=== PATIENT | male | born 1965 | race Caucasian/White ===

== ENCOUNTER 2019-08-13 01:06 | Emergency (ER) | payer SELFPAY ==
[~2019-08-13] VITALS: Ht 170.2 cm; Wt 69.4 kg
[2019-08-13] MEDS ORDERED: IV RINGERS SOLUTION,LACTATED 1,000 ML IV SCH (01:28)
[2019-08-13] MEDS ORDERED: LIDOCAINE 2% 20 ML VIAL. IJ ONE (01:30)
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
[2019-08-13] MEDS ORDERED: DIPHTH,PERTUSS(ACELL),TET TOX 0.5 ML DISP.SYRIN. VAX IM ONE (02:30)
[2019-08-13 02:35] LABS: BASO # 0.1 x10^3/uL (0.0-0.2); BASO % 1 % (0-3); EOS # 0.1 x10^3/uL (0.0-0.7); EOS % 1 % (0-3); HEMOGLOBIN 14.4 g/dL (13.0-17.5); LYMPH # 2.9 x10^3/uL (1.0-4.8); LYMPH % 22 % (24-48); MEAN CORPUSCULAR HEMOGLOBIN 31 pg (25-35); MEAN CORPUSCULAR HGB CONC 33 g/dL (31-37); MEAN CORPUSCULAR VOLUME 96 fL (79-100); MONO # 0.8 x10^3/uL (0.0-1.1); MONO % 6 % (0-9); NEUT # 9.2 x10^3uL (1.8-7.7); NEUT % 70 % (31-73); PLATELET COUNT 279 x10^3/uL (140-400); RED CELL DISTRIBUTION WIDTH 13.7 % (11.5-14.5); WHITE BLOOD COUNT 13.1 x10^3/uL (4.0-11.0)
[2019-08-13 02:44] LABS: ALBUMIN 3.5 g/dL (3.4-5.0); CALCIUM 8.2 mg/dL (8.5-10.1); CREATININE 0.7 mg/dL (0.7-1.3); DIRECT BILIRUBIN 0.1 mg/dL (0.0-0.2); GFR 117.5; MAGNESIUM 2.2 mg/dL (1.8-2.4); POTASSIUM 3.6 mmol/L (3.5-5.1); TOTAL BILIRUBIN 0.1 mg/dL (0.2-1.0); TOTAL PROTEIN 6.9 g/dL (6.4-8.2)
[2019-08-13 03:05] LABS: BARBITURATES NEG (NEG); BENZODIAZEPINES NEG (NEG); CANNABINOIDS POS (NEG); COCAINE NEG (NEG); METHADONE NEG (NEG); OPIATES NEG (NEG); PHENCYCLIDINE NEG (NEG)
[2019-08-13 03:08] LABS: BILIRUBIN,URINE NEG (NEG); CLARITY,URINE CLEAR; COLOR,URINE STRAW; GLUCOSE,URINE NEG (NEG); NITRITE,URINE NEG (NEG); UROBILINOGEN,URINE 0.2 mg/dL (0.2 mg/dL); WBC,URINE 0 /HPF (0-4)
[2019-08-13 03:09] LABS: BACTERIA,URINE FEW /HPF (0-FEW); SQUAMOUS EPITHELIAL CELL,UR OCC /LPF
[2019-08-13 03:20] LABS: AMPHETAMINE/METHAMPHETAMINE NEG (NEG)
--- NOTE | 2019-08-13 04:02 | RAD ---
CT neck with contrast History: Sore throat stiff neck difficulty swallowing Axial helical images of the neck were obtained after the administration of 75 cc IV Isovue-370 contrast. Axial coronal and sagittal reconstruction was performed for a CT soft tissues neck with contrast. Findings: The fat soft tissue planes of the neck are preserved. There is no mass or lymphadenopathy. There is no prevertebral soft tissue swelling. The thyroid appears normal. Mild reversal of the normal cervical lordosis is seen. Impression: 1. Mild reversal of the normal cervical lordosis could be positional or could be secondary to muscle spasm. 2. Otherwise negative examination. No mass lymphadenopathy or abscess. End impression CT C-Spine without contrast: Clinical History: Pain status post syncope Technique: Axial helical images of the cervical spine were obtained without contrast, axial coronal and sagittal reconstruction was performed. Findings: There is beam Polanco artifact due to prior anterior fusion of C5-C6. There is no loss of vertebral body stature. There is no prevertebral soft tissue swelling. The vertebral bodies are well aligned. The C1-C2 relationship is normal. The visualized osseous structures appear normal. Evaluation of the central canal is limited without contrast. There is multiple posterior disc bulges resulting in flattening of the thecal sac. There does not appear to be gross flattening of the cervical cord. There is marked narrowing of multiple neuroforamen. Impression: No acute findings. Clinical correlation suggested. End impression CT maxillofacial without contrast History: Pain status post trauma Axial helical images of the face including paranasal sinuses orbits and mandible were obtained without contrast. Axial, sagittal and coronal reconstruction was performed. FINDINGS: There is a minimally displaced fracture through the proximal left mandibular condyle The nasal septum is mostly midline. The ostiomeatal complexes are narrow but patent. The paranasal sinuses are clear. The visualized osseous structures appear intact. The orbits appear normal. Impression: Acute traumatic fracture of the left mandible. PQRS Compliance Statement: One or more of the following individualized dose reduction techniques were utilized for this examination: 1. Automated exposure control 2. Adjustment of the mA and/or kV according to patient size 3. Use of iterative reconstruction technique Electronically signed by: Shady Young III, MD (08/13/2019 3:59 AM) [facility]
[2019-08-13] MEDS ORDERED: MVI, ADULT NO.4 WITH VIT K 10 ML, FOLIC ACID SYRINGE for ER 1 MG, THIAMINE INJ 100 MG i... IV ONE ×4 (04:30)
[2019-08-13] MEDS ORDERED: MVI, ADULT NO.4 WITH VIT K 10 ML VIAL IV ONE (04:38)
[2019-08-13] MEDS ORDERED: cefTRIAXone SODIUM 1 GM VIAL ONE (04:38)
[2019-08-13] MEDS ORDERED: IV NORMAL SALINE 50ML 50 ML ONE (04:38)
[2019-08-13] MEDS ORDERED: THIAMINE 200 MG/2 ML VIAL. IV ONE (04:40)
[2019-08-13] MEDS ORDERED: FOLIC ACID 5 MG/ML SYRINGE for ER IV ONE (04:40)
[2019-08-13 05:52] VITALS: BP 115/77
[2019-08-13] MEDS ORDERED: CEPH-264 PO (06:41)
--- NOTE | 2019-08-13 07:18 | RAD ---
ANKLE RIGHT 3V DATE: 08/13/2019 1:35 AM INDICATION: Fall, pain COMPARISON: None. FINDINGS: Bones: There is no evidence of acute fracture or dislocation. Joints: The ankle mortise is congruent. No widening of the distal tibiofibular syndesmosis. Miscellaneous: None. IMPRESSION: No evidence of acute fracture. Electronically signed by: Dmitriy Briones MD (08/13/2019 7:15 AM) [facility]
--- NOTE | 2019-08-13 07:20 | RAD ---
CHEST PA LATERAL INDICATION: Syncope. COMPARISON STUDY: 11/01/2014. FINDINGS: Lungs: Normal lung volume. No pulmonary mass or consolidation. The tracheobronchial tree and hilar structures are normal. Pleura: No pleural effusion or pneumothorax. Heart and Mediastinum: The cardiomediastinal silhouette is normal. The great vessels of the thorax are normal. Bones and Soft Tissues: The bones and soft tissues are within normal limits. IMPRESSION: No acute cardiopulmonary process. Electronically signed by: Dmitriy Briones MD (08/13/2019 7:17 AM) [facility]
--- NOTE | 2019-08-16 03:53 | EKG ---
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
== END 2019-08-13 06:50 | disposition home or self-care (01) ==
LOC: ER 01:06
DX: S06.0X0A Concussion without loss of consciousness, initial encounter (principal); S02.609A Fracture of mandible, unspecified, initial encounter for closed fracture; S01.511A Laceration without foreign body of lip, initial encounter; S93.401A Sprain of unspecified ligament of right ankle, initial encounter; D72.829 Elevated white blood cell count, unspecified; F10.20 Alcohol dependence, uncomplicated; Y90.6 Blood alcohol level of 120-199 mg/100 ml; Y04.0XXA Assault by unarmed brawl or fight, initial encounter; Y93.89 Activity, other specified; Y92.89 Other specified places as the place of occurrence of the external cause; Y99.8 Other external cause status
CPT/HCPCS: 12011; 36415; 70450; 70486; 71046; 72125; 73610; 80048; 80076; 80307; 81001; 82550; 83690; 83735; 83880; 84443; 84484; 85025; 85379; 85610; 85730; 90471; 90715; 93005; 96361; 96365; 96375; 99285; G0480; J0696; J7120; J2001